=== PATIENT | male | born 1995 | race African-American/Black ===

== ENCOUNTER 2019-06-12 14:52 | Emergency (ER) | payer OTHER ==
[~2019-06-12] VITALS: Ht 177.8 cm; Wt 65.9 kg
[2019-06-12 15:00] VITALS: BP 129/75
[2019-06-12] MEDS ORDERED: GUAI237L83 PO (15:12)
--- NOTE | 2019-06-12 15:13 | PHYS DOC ---
Adult General Chief Complaint Chief Complaint: FLU SYMPTOM HPI HPI Patient is a 23-year-old male who presents with complaint that his bronchitis is returned. Patient states he has a history of bronchitis sinus regular basis and states that when he was in [place], his provider would give him some cough syrup and 2-3 days off of work and then he would be back to normal again patient indicates that he never gets antibiotics. Patient denies any fever. He denies any chest pain or shortness of breath.[] Review of Systems Review of Systems Constitutional: Denies fever or chills [] HENT: Positive congestion without sore throat [] Respiratory: Positive cough without shortness of breath [] Cardiovascular: No additional information not addressed in HPI [] Integument: Denies rash or skin lesions [] Neurologic: Denies headache, focal weakness or sensory changes [] Physical Exam Physical Exam Constitutional: Well developed, well nourished, no acute distress, non-toxic appearance. [] HENT: Normocephalic, atraumatic, bilateral external ears normal, oropharynx moist, no oral exudates, nose normal. [] Cardiovascular:Heart rate regular rhythm, no murmur [] Lungs & Thorax: Bilateral breath sounds clear to auscultation [] Extremities: No tenderness, no cyanosis, no clubbing, ROM intact, no edema. [] EKG EKG [] Radiology/Procedures Radiology/Procedures [] Course & Med Decision Making Course & Med Decision Making Pertinent Labs and Imaging studies reviewed. (See chart for details) Patient is demonstrating malingering type behavior, suggesting that he needs at least 2-3 days of work off for mild illness. Physical findings are 100% unremarkable. We will give patient excuse from physical training for 3 days. Patient should follow up with on post physician should he have any further concerns. Dragon Disclaimer Dragon Disclaimer This electronic medical record was generated, in whole or in part, using a voice recognition dictation system. Departure Departure: Impression: Primary Impression: Upper respiratory infection, viral Disposition: 01 HOME, SELF-CARE Condition: STABLE Referrals: PCP,NO (PCP) Patient Instructions: Upper Respiratory Infection, Adult Scripts Guaifenesin/Dextromethorphan (Robitussin Cough-Chest Dm Liq) 237 Ml Liquid 5 ML PO Q6HRS PRN for COUGH, #237 ML Prov: ALBARO DOWNING Jr. DO 06/12/19 ALBARO DOWNING Jr. DO Jun 12, 2019 15:13
== END 2019-06-12 15:18 | disposition home or self-care (01) ==
LOC: ER 14:52
DX: J06.9 Acute upper respiratory infection, unspecified (principal); B97.89 Other viral agents as the cause of diseases classified elsewhere
CPT/HCPCS: 99283

== ENCOUNTER 2019-09-12 18:52 | Emergency (ER) | payer OTHER ==
[~2019-09-12] VITALS: Ht 172.7 cm; Wt 63.6 kg
[~2019-09-12 18:52] MED LIST: GUAI237L83 PO
--- NOTE | 2019-09-12 19:27 | RAD ---
EXAM: Chest, single view. HISTORY: Shortness of breath. Nausea and vomiting. COMPARISON: None. FINDINGS: A frontal view of the chest is obtained. There is no infiltrate, pleural effusion or pneumothorax. The heart is normal in size. IMPRESSION: No acute pulmonary finding. Electronically signed by: Anny Simon MD (09/12/2019 7:24 PM) [facility]
[2019-09-12] MEDS ORDERED: ONDANSETRON PF 4 MG/2 ML VIAL. IVP ONE (19:30)
[2019-09-12 20:04] LABS: BASO % 1 % (0-3); EOS % 0 % (0-3); HEMATOCRIT 42.5 % (39.0-53.0); HEMOGLOBIN 14.2 g/dL (13.0-17.5); LYMPH # 1.8 x10^3/uL (1.0-4.8); LYMPH % 22 % (24-48); MEAN CORPUSCULAR HEMOGLOBIN 33 pg (25-35); MEAN CORPUSCULAR HGB CONC 33 g/dL (31-37); MEAN CORPUSCULAR VOLUME 97 fL (79-100); MONO # 0.9 x10^3/uL (0.0-1.1); MONO % 11 % (0-9); NEUT # 5.5 x10^3uL (1.8-7.7); NEUT % 67 % (31-73); PLATELET COUNT 228 x10^3/uL (140-400); RED BLOOD COUNT 4.36 x10^6/uL (4.30-5.70); WHITE BLOOD COUNT 8.2 x10^3/uL (4.0-11.0)
[2019-09-12 20:06] VITALS: BP 124/85
[2019-09-12] MEDS ORDERED: ONDA4TAB12 PO (20:12)
--- NOTE | 2019-09-12 20:13 | PHYS DOC ---
Past History Past Medical History: Bronchitis Past Surgical History: No Surgical History Alcohol Use: None General Adult EDM: Chief Complaint: SHORTNESS OF BREATH HPI: HPI: 24-year-old male presents with vomiting and general lethargy. He is also reported some mild shortness of breath. He has been feeling generally under the weather for last couple of days. The patient has been around his significant other who just found out that she was exposed to a confirmed COVID-19 patient 2 weeks ago. Neither the patient nor his significant other have been tested. Patient came here to make sure he did have a serious condition. He is worried by COVID-19. He is in the and does not want to spread to other people. He denies fever chills. No fever on arrival. Review of Systems: Review of Systems: Constitutional: Denies fever or chills Eyes: Denies change in visual acuity HENT: Denies nasal congestion or sore throat Respiratory: Cough with mild shortness of breath Cardiovascular: Denies chest pain or edema GI: Denies abdominal pain, nausea, vomiting, bloody stools or diarrhea : Denies dysuria Musculoskeletal: Denies back pain or joint pain Integument: Denies rash Neurologic: Denies headache, focal weakness or sensory changes Endocrine: Denies polyuria or polydipsia Lymphatic: Denies swollen glands Psychiatric: Denies depression or anxiety Heart Score: Risk Factors: Risk Factors: DM, Current or recent (<one month) smoker, HTN, HLP, family history of CAD, obesity. Risk Scores: Score 0 - 3: 2.5% MACE over next 6 weeks - Discharge Home Score 4 - 6: 20.3% MACE over next 6 weeks - Admit for Clinical Observation Score 7 - 10: 72.7% MACE over next 6 weeks - Early Invasive Strategies Current Medications: Current Meds: Current Medications Medications (Trade) Dose Ordered Sig/[facility] Start Time Stop Time Status Last Admin Dose Admin Ondansetron HCl (Zofran) 4 mg 1X ONCE 09/12/19 19:30 09/12/19 19:40 DC Allergies: Allergies: Allergies Coded Allergies Type Severity Reaction Last Updated Verified acetaminophen Allergy Unknown 06/12/19 Yes ibuprofen Allergy Unknown 06/12/19 Yes Physical Exam: PE: Constitutional: Well developed, well nourished, no acute distress, non-toxic appearance. [] HENT: Normocephalic, atraumatic, bilateral external ears normal, oropharynx [address], no oral exudates, nose normal. [] Eyes: PERRLA, EOMI, conjunctiva normal, no discharge. [] Neck: Normal range of motion, no tenderness, supple, no stridor. [] Cardiovascular: Deferred due to isolation precautions [] Lungs & Thorax: Deferred due to isolation precautions [] Abdomen: Bowel sounds normal, soft, no tenderness, no masses, no pulsatile masses. [] Skin: Warm, dry, no erythema, no rash. [] Back: No tenderness, no CVA tenderness. [] Extremities: No tenderness, no cyanosis, no clubbing, ROM intact, no edema. [] Neurologic: Alert and oriented X 3, normal motor function, normal sensory function, no focal deficits noted. [] Psychologic: Affect normal, judgement normal, mood normal. [] Current Patient Data: Labs: Laboratory Tests Test 09/12/19 19:30 White Blood Count 8.2 x10^3/uL (4.0-11.0) Red Blood Count 4.36 x10^6/uL (4.30-5.70) Hemoglobin 14.2 g/dL (13.0-17.5) Hematocrit 42.5 % (39.0-53.0) Mean Corpuscular Volume 97 fL (79-100) Mean Corpuscular Hemoglobin 33 pg (25-35) Mean Corpuscular Hemoglobin Concent 33 g/dL (31-37) Red Cell Distribution Width 14.0 % (11.5-14.5) Platelet Count 228 x10^3/uL (140-400) Neutrophils (%) (Auto) 67 % (31-73) Lymphocytes (%) (Auto) 22 % (24-48) L Monocytes (%) (Auto) 11 % (0-9) H Eosinophils (%) (Auto) 0 % (0-3) Basophils (%) (Auto) 1 % (0-3) Neutrophils # (Auto) 5.5 x10^3uL (1.8-7.7) Lymphocytes # (Auto) 1.8 x10^3/uL (1.0-4.8) Monocytes # (Auto) 0.9 x10^3/uL (0.0-1.1) Eosinophils # (Auto) 0.0 x10^3/uL (0.0-0.7) Basophils # (Auto) 0.0 x10^3/uL (0.0-0.2) Vital Signs: Vital Signs Date Time Temp Pulse Resp B/P (MAP) Pulse Ox O2 Delivery O2 Flow Rate FiO2 09/12/19 19:41 51 18 121/74 (90) 98 Room Air EKG: EKG: [] Radiology/Procedures: Radiology/Procedures: [] Impressions: EXAM: Chest, single view. HISTORY: Shortness of breath. Nausea and vomiting. COMPARISON: None. FINDINGS: A frontal view of the chest is obtained. There is no infiltrate, pleural effusion or pneumothorax. The heart is normal in size. IMPRESSION: No acute pulmonary finding. Electronically signed by: Anny Simon MD (09/12/2019 7:24 PM) [facility] DICTATED AND SIGNED BY: ANNY SIMON MD DATE: 09/12/191923 CC: PATTI RÍOS DO; PCP,NO ~ Course & Med Decision Making: Course & Med Decision Making Pertinent Labs and Imaging studies reviewed. (See chart for details) [] Dragon Disclaimer: Dragon Disclaimer: This electronic medical record was generated, in whole or in part, using a voice recognition dictation system. Departure Departure: Impression: Primary Impression: Close exposure to COVID-19 virus Disposition: HOME/RESIDENCE PRIOR TO ADM Condition: STABLE Referrals: PCP,NO (PCP) Patient Instructions: Viral Syndrome Scripts Ondansetron (ONDANSETRON ODT) 4 Mg Tab.rapdis 1 TAB PO PRN Q6-8HRS PRN for VOMITING, #16 TAB Prov: PATTI RÍOS DO 09/12/19 Justification of Admission: Justification of Admission: Justification of Admission Dx: N/A PATTI RÍOS DO Sep 12, 2019 20:13
[2019-09-12 20:14] LABS: CALCIUM 8.9 mg/dL (8.5-10.1); GFR 111.1; POTASSIUM 3.5 mmol/L (3.5-5.1)
[2019-09-12 20:20] LABS: ALBUMIN 4.3 g/dL (3.4-5.0); ALBUMIN/GLOBULIN RATIO 1.4 (1.0-1.7); TOTAL BILIRUBIN 1.6 mg/dL (0.2-1.0); TOTAL PROTEIN 7.3 g/dL (6.4-8.2)
== END 2019-09-12 20:30 | disposition home or self-care (01) ==
LOC: ER 18:52
DX: R06.02 Shortness of breath (principal); Z20.828 Contact with and (suspected) exposure to other viral communicable diseases; Z88.6 Allergy status to analgesic agent
CPT/HCPCS: 36415; 71045; 80053; 85025; 96374; 99284; J2405

== ENCOUNTER 2019-11-25 07:50 | Emergency (ER) | payer OTHER ==
[~2019-11-25] VITALS: Ht 177.8 cm; Wt 67.0 kg
[~2019-11-25 07:50] MED LIST changes: +ONDA4TAB12 PO
[2019-11-25 08:00] VITALS: BP 124/85
--- NOTE | 2019-11-25 08:08 | PHYS DOC ---
Past History Past Medical History: Asthma, Bronchitis Past Surgical History: No Surgical History Alcohol Use: None Adult General Chief Complaint Chief Complaint: COUGH HPI HPI Patient is a 24yo M who presents for URI-like symptoms. Onset was 2 weeks ago. Reports seeing on-post PCP as he is [employer] for this since onset and has had x3 negative COVID tests and diagnosed with viral allergies. Reports receiving RXs Zithromax, Sudafed, Affrin and Flonase without relief. Patient reports taking family members cough syrup with codeine last night that alleviated all symptoms and requesting this today. Denies any fever, chills, CP, SHOB, AP, recent travel or COVID-19 contacts. Review of Systems Review of Systems Fourteen body systems of review of systems have been reviewed. See HPI for pertinent positives and negative responses, other lovett all other systems are negative, non-pertinent or non-contributory Allergies Allergies Allergies Coded Allergies Type Severity Reaction Last Updated Verified acetaminophen Allergy Unknown 06/12/19 Yes ibuprofen Allergy Unknown 06/12/19 Yes Physical Exam Physical Exam Constitutional: Well developed, well nourished, no acute distress, non-toxic appearance. HENT: Normocephalic, atraumatic, bilateral external ears normal, middle ears normal, unremarkable tympanic membranes bilaterally without any signs of acute infection, oropharynx moist, no oral exudates, nasal turbinates mildly engorged with minimal rhinorrhea, external nose normal. No cervical lymphadenopathy, no sinus tenderness to palpation Eyes: PERRLA, EOMI, conjunctiva normal, no discharge. Neck: Normal range of motion, no tenderness, supple, no stridor. Cardiovascular: Heart rate regular, sinus rhythm, no murmurs rubs or gallops Lungs & Thorax: Bilateral breath sounds clear to auscultation Abdomen: Bowel sounds normal, soft, no tenderness, no masses, no pulsatile masses. Nonsurgical abdomen, no peritoneal signs Skin: Warm, dry, no erythema, no rash. Back: No tenderness, no CVA tenderness. Extremities: No tenderness, no cyanosis, no clubbing, ROM intact, no edema. Neurologic: Alert and oriented X 3, grossly normal motor & sensory function, no focal deficits noted. Psychologic: Affect normal, judgement normal, mood normal. EKG EKG [] Radiology/Procedures Radiology/Procedures [] Course & Med Decision Making Course & Med Decision Making Patient seen and evaluated on immediate ER arrival ABCs unremarkable Comprehensive history and physical exam obtained, discussed with patient grossly benign findings, that he has received appropriate medical therapy to date and little further work-up/intervention indicated today I declined patient's request to fill cough syrup I advised patient on need for continued supportive care with specific use of Flonase and antihistamine such as Zyrtec or Claritin Strict return precautions were discussed with patient. Patient was unhappy but understood diagnosis. All questions and concerns addressed Patient discharged home in stable condition with instructions to follow-up with PCP this upcoming week Dragon Disclaimer Dragon Disclaimer This electronic medical record was generated, in whole or in part, using a voice recognition dictation system. Departure Departure: Impression: Primary Impression: Viral syndrome Disposition: 01 HOME/RESIDENCE PRIOR TO ADM Condition: STABLE Referrals: PCP,NO (PCP) Patient Instructions: Viral Syndrome Justification of Admission: Justification of Admission: Justification of Admission Dx: N/A CHELSEY NIEVES DO Nov 25, 2019 08:08
== END 2019-11-25 08:25 | disposition home or self-care (01) ==
LOC: ER 07:50
DX: B34.9 Viral infection, unspecified (principal); J45.909 Unspecified asthma, uncomplicated; Z88.6 Allergy status to analgesic agent
CPT/HCPCS: 99282

== ENCOUNTER 2020-03-12 23:34 | Emergency (ER) | payer OTHER ==
[~2020-03-12] VITALS: Ht 177.8 cm; Wt 63.9 kg
--- NOTE | 2020-03-13 00:03 | PHYS DOC ---
Past History Past Medical History: No Pertinent History, Asthma, Bronchitis Past Surgical History: No Surgical History Alcohol Use: None General Adult EDM: Chief Complaint: CHEST PAIN HPI: HPI: ".. I ve been having chest pain the last three days.. [place],.. it been constant.. I was notified by the [place]--- my father on the ... stress of the notification or... Work... Have not had these problems before.... 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 Patient presents with above hx and complaints of central chest pain or discomfort. Patient states he is in good physical health not had problems with cardiac before. Pt has been under stress at work and recent notification of father's on the . Patient does not smoke. Does not vape. Does not use illicit drugs. No recent travel. Recently lived in [place].. Patient has past history of asthma, bronchitis. No history of dysrhythmia. No history of family history of early onset of cardiac disease. Patient reports he is in very good physical condition. No trauma. No recent travel. No specific ill contacts. Covid testing negative this past week as part of the screen. Review of Systems: Review of Systems: Constitutional: Denies fever or chills Eyes: Denies change in visual acuity HENT: Denies nasal congestion or sore throat Respiratory: Denies cough or shortness of breath Cardiovascular: Complains of chest pain GI: Denies abdominal pain, nausea, vomiting, bloody stools or diarrhea : Denies dysuria Musculoskeletal: Denies back pain or joint pain Integument: Denies rash Neurologic: Denies headache, focal weakness or sensory changes Endocrine: Denies polyuria or polydipsia Lymphatic: Denies swollen glands Psychiatric: Denies depression or anxiety Family History: Family History: Noncontributory to presentation Current Medications: Current Meds: See nursing for home meds Allergies: Allergies: Allergies Coded Allergies Type Severity Reaction Last Updated Verified No Known Drug Allergies 03/12/20 No Physical Exam: PE: Constitutional: Well developed, well nourished, no acute distress, non-toxic appearance. [] HENT: Normocephalic, atraumatic, bilateral external ears normal, oropharynx moist, no oral exudates, nose normal. Nose ring Eyes: PERRLA, EOMI, conjunctiva normal, no discharge. [] Neck: Normal range of motion, no tenderness, supple, no stridor. [] Cardiovascular: Bradycardic heart rate regular rhythm, no murmur [] Lungs & Thorax: Bilateral breath sounds equal apex on auscultation [] Abdomen: Bowel sounds normal, soft, no tenderness, no masses, no pulsatile masses. No history of tarry stools Skin: Warm, dry, no erythema, no rash. Multiple tattoos Back: No tenderness, no CVA tenderness. [] Extremities: No tenderness, no cyanosis, no clubbing, ROM intact, no edema. No cording Neurologic: Alert and oriented X 3, normal motor function, normal sensory function, no focal deficits noted. [] Psychologic: Affect anxious,, judgement normal, mood normal. [] Current Patient Data: Vital Signs: Vital Signs Date Time Temp Pulse Resp B/P (MAP) Pulse Ox O2 Delivery O2 Flow Rate FiO2 03/12/20 23:47 98.8 53 18 133/87 (102) 99 Room Air EKG: EKG: My interpretation of EKG shows a sinus bradycardic rhythm [] at 52 bpm. No acute morphology appreciated Radiology/Procedures: Radiology/Procedures: [][address] [address] IMAGING REPORT Signed PATIENT: MATIAS CASEY ACCOUNT: [id number] : 1995 LOCATION: ER AGE: 24 SEX: M EXAM STATUS: REG ER ORD. PHYSICIAN: YOGESH VALERIO MD REASON: Chest pain PROCEDURE: PORTABLE CHEST 1V INDICATION: Reason: Chest pain / Spl. Instructions: / History: COMPARISON: September 12, 2019 FINDINGS: Single view of chest obtained. No focal airspace consolidation. Cardiomediastinal contour unremarkable. No acute osseous abnormality. IMPRESSION: * No focal airspace consolidation or edema. Electronically signed by: Zahira Bo MD (03/13/2020 12:52 AM) DESKTOP- [id number] DICTATED AND SIGNED BY: ZAHIRA BO MD DATE: 03/13/20 0051 CC: YOGESH VALERIO MD; PCP,UNKNOWN ~MTH0 0 Heart Score: HEART Score for Chest Pain: HEART Score for Chest Pain Response (Comments) Value History Slighlty/Non-Suspicious 0 ECG Normal 0 Age < 45 0 Risk Factors No Risk Factors 0 Troponin < Normal Limit 0 Total 0 Risk Factors: Risk Factors: DM, Current or recent (<one month) smoker, HTN, HLP, family history of CAD, obesity. Risk Scores: Score 0 - 3: 2.5% MACE over next 6 weeks - Discharge Home Score 4 - 6: 20.3% MACE over next 6 weeks - Admit for Clinical Observation Score 7 - 10: 72.7% MACE over next 6 weeks - Early Invasive Strategies Course & Med Decision Making: Course & Med Decision Making Pertinent Labs and Imaging studies reviewed. (See chart for details) Patient take Tylenol and ibuprofen as needed for pain. Patient to take a daily baby aspirin and follow-up with Brigitte. Consider outpatient stress testing. Return if any concerns. Impression: 1. Chest Pain- appears to be chest wall or atypical. 2. Bradycardia [] Dragon Disclaimer: Dragon Disclaimer: This electronic medical record was generated, in whole or in part, using a voice recognition dictation system. Departure Departure: Referrals: PCP,UNKNOWN (PCP) Scripts Aspirin (Children's Aspirin) 81 Mg Tab.chew 1 TAB PO DAILY for cp for 30 Days, #30 TAB 0 Refills Prov: YOGESH VALERIO MD 03/13/20 Ibuprofen (IBUPROFEN) 400 Mg Tablet 400 MG PO QIDPRN PRN for pain, fever or discomfort, #120 TAB Prov: YOGESH VALERIO MD 03/13/20 Acetaminophen (ACETAMINOPHEN) 500 Mg Tablet 1000 MG PO QIDPRN PRN for fever, discomfort, #120 TAB Prov: YOGESH VALERIO MD 03/13/20 Dragon Disclaimer This chart was dictated in whole or in part using Voice Recognition software in a busy, high-work load, and often noisy Emergency Department environment. It may contain unintended and wholly unrecognized errors or omissions. Dragon Disclaimer This chart was dictated in whole or in part using Voice Recognition software in a busy, high-work load, and often noisy Emergency Department environment. It may contain unintended and wholly unrecognized errors or omissions. Dragon Disclaimer This chart was dictated in whole or in part using Voice Recognition software in a busy, high-work load, and often noisy Emergency Department environment. It may contain unintended and wholly unrecognized errors or omissions. YOGESH VALERIO MD Mar 13, 2020 00:03
[2020-03-13 00:16] LABS: BASO # 0.1 x10^3/uL (0.0-0.2); BASO % 1 % (0-3); EOS # 0.1 x10^3/uL (0.0-0.7); EOS % 2 % (0-3); HEMATOCRIT 44.7 % (39.0-53.0); HEMOGLOBIN 14.7 g/dL (13.0-17.5); LYMPH # 2.3 x10^3/uL (1.0-4.8); LYMPH % 34 % (24-48); MEAN CORPUSCULAR HEMOGLOBIN 32 pg (25-35); MEAN CORPUSCULAR HGB CONC 33 g/dL (31-37); MEAN CORPUSCULAR VOLUME 98 fL (79-100); MONO # 0.9 x10^3/uL (0.0-1.1); MONO % 13 % (0-9); NEUT # 3.6 x10^3uL (1.8-7.7); NEUT % 51 % (31-73); PLATELET COUNT 230 x10^3/uL (140-400); RED BLOOD COUNT 4.56 x10^6/uL (4.30-5.70); RED CELL DISTRIBUTION WIDTH 13.8 % (11.5-14.5); WHITE BLOOD COUNT 6.9 x10^3/uL (4.0-11.0)
[2020-03-13 00:21] LABS: CALCIUM 9.2 mg/dL (8.5-10.1); CREATININE 1.2 mg/dL (0.7-1.3); POTASSIUM 3.7 mmol/L (3.5-5.1)
[2020-03-13] MEDS ORDERED: IV RINGERS SOLUTION,LACTATED 1,000 ML IV SCH (00:30)
[2020-03-13] MEDS ORDERED: ASPIRIN CHEWABLE 81 MG TABLET. PO ONE (00:30)
[2020-03-13 00:33] LABS: ALBUMIN 4.3 g/dL (3.4-5.0); DIRECT BILIRUBIN 0.3 mg/dL (0.0-0.2); TOTAL BILIRUBIN 1.4 mg/dL (0.2-1.0); TOTAL PROTEIN 7.2 g/dL (6.4-8.2)
--- NOTE | 2020-03-13 00:55 | RAD ---
INDICATION: Reason: Chest pain / Spl. Instructions: / History: COMPARISON: September 12, 2019 FINDINGS: Single view of chest obtained. No focal airspace consolidation. Cardiomediastinal contour unremarkable. No acute osseous abnormality. IMPRESSION: * No focal airspace consolidation or edema. Electronically signed by: Venkat Bo MD (03/13/2020 12:52 AM) [id number]
[2020-03-13] MEDS ORDERED: IBUP400T18 PO (01:36)
[2020-03-13] MEDS ORDERED: ACET500T68 PO (01:36)
[2020-03-13] MEDS ORDERED: ASPI81TA59 PO (01:36)
[2020-03-13 01:42] VITALS: BP 131/80
[2020-03-13] MEDS ORDERED: KETOROLAC 30 MG/ML VIAL. IVP ONE (02:00)
--- NOTE | 2020-03-13 06:33 | EKG ---
[address] [address] Test Date: 2020-03-12 Test Time: 23:50:22 Pat Name: MATIAS CASEY Department: Room: Gender: M Online [employer] Specialist: JAMAL : 1995 Requested By: YOGESH VALERIO Order Number: [id number] Reading MD: Measurements Intervals [place] Rate: 52 P: 70 MI: 160 QRS: 68 QRSD: 100 T: 62 QT: 404 QTc: 378 Interpretive Statements SINUS ARRHYTHMIA OTHERWISE NORMAL ECG RI6.02 No previous ECG available for comparison
[2020-03-13 15:08] LABS: THYROID STIM HORMONE (TSH) 2.564 uIU/mL (0.358-3.740)
== END 2020-03-13 02:00 | disposition home or self-care (01) ==
LOC: ER 23:34
DX: R07.89 Other chest pain (principal); R00.1 Bradycardia, unspecified; F43.9 Reaction to severe stress, unspecified; J45.909 Unspecified asthma, uncomplicated
CPT/HCPCS: 36415; 71045; 80048; 80061; 80076; 82550; 83690; 83735; 83880; 84443; 84484; 85025; 85379; 85610; 85730; 93005; 96361; 96374; 99285; J1885; J7120

== ENCOUNTER 2020-05-03 03:29 | Emergency (ER) | payer OTHER ==
[~2020-05-03] VITALS: Ht 177.8 cm; Wt 63.9 kg
[~2020-05-03 03:29] MED LIST changes: +ACET500T68 PO; +ASPI81TA59 PO; +IBUP400T18 PO
[2020-05-03 03:42] VITALS: BP 99/70
[2020-05-03] MEDS ORDERED: ONDA4TAB7 PO (04:03)
[2020-05-03] MEDS ORDERED: DIPH25CA58 PO (04:03)
--- NOTE | 2020-05-03 04:08 | PHYS DOC ---
Past History Past Medical History: Asthma, Bronchitis, GERD Past Surgical History: No Surgical History Alcohol Use: None Adult General Chief Complaint Chief Complaint: HEADACHE HPI HPI Patient is an otherwise healthy 24-year-old male who presents with headache. States he has a mild, 3 out of 10, whole head headache, that has been going on since he got off work yesterday morning. 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 States that when he got home he ended up mild headache. Denies any changes in vision, fevers, neck pain, chest pain, shortness of breath, abdominal pain, nausea, vomiting. Denies any numbness/weakness/tingling. States he has been eating normally but probably has not been drinking enough water. States he is unable to take any Tylenol or ibuprofen as they make his stomach upset so has not taken anything. Denies any other recent travel, illnesses, rash. States he was supposed to go into work tonight but did not go and wants a work note. Review of Systems Review of Systems Review of systems otherwise unremarkable except noted in HPI. Allergies Allergies Allergies Coded Allergies Type Severity Reaction Last Updated Verified No Known Drug Allergies 03/12/20 No Physical Exam Physical Exam Constitutional: Well developed, well nourished, no acute distress, non-toxic appearance. [] HENT: Normocephalic, atraumatic, bilateral external ears normal, oropharynx moist, no oral exudates, nose normal. [] Eyes: PERRLA, EOMI, conjunctiva normal, no discharge. [] Neck: Normal range of motion, ] Cardiovascular:Heart rate regular rhythm, no murmur [] Lungs & Thorax: Bilateral breath sounds clear to auscultation [] Abdomen: no tenderness, Skin: Warm, dry, no erythema, no rash. [] Neurologic: Alert and oriented X 3, normal motor function, normal sensory function, no focal deficits noted. [] Psychologic: Affect normal, judgement normal, mood normal. [] Current Patient Data Vital Signs Vital Signs Date Time Temp Pulse Resp B/P (MAP) Pulse Ox O2 Delivery O2 Flow Rate FiO2 05/03/20 03:42 97.8 50 18 99/70 (80) 99 Room Air EKG EKG [] Radiology/Procedures Radiology/Procedures [] Heart Score Risk Factors: Risk Factors: DM, Current or recent (<one month) smoker, HTN, HLP, family history of CAD, obesity. Risk Scores: Risk Factors: DM, Current or recent (<one month) smoker, HTN, HLP, family hi story of CAD, obesity. Course & Med Decision Making Course & Med Decision Making Patient is a 24-year-old male who presents with mild headache and requesting a work note Vital signs not concerning. Physical exam noted above. Discussed with patient other treatment regimens at home for headache. Gave patient the option to stay in the emergency department, and run basic labs and give a modified migraine cocktail which would make him sleepy. Patient stated he just wanted a work note because he was supposed to work tonight and some advice on what to take when he gets home. States that his headache is already getting better than it was but needed a work note. Gave instructions and prescriptions on home headache medicine. Advised proper diet and hydration. Advised to follow-up with primary care physician to discuss ED visit and set up a post ER follow-up visit. Patient very grateful, verbalized understanding and agreed with plan of discharge. [] Dragon Disclaimer Dragon Disclaimer This electronic medical record was generated, in whole or in part, using a voice recognition dictation system. Departure Departure: Impression: Primary Impression: Head ache Disposition: 01 DC HOME SELF CARE/HOMELESS Condition: GOOD Referrals: PCP,UNKNOWN (PCP) Patient Instructions: General Headache Without Cause Additional Instructions: Please read all the attached information. As discussed you were given a work note for tonight and advised to make sure to eat and drink properly. Please use the headache medicine/cocktail that we discussed and try to get some sleep. Please follow-up with your primary care physician/Brigitte first thing Tuesday morning to discuss your ED visit and need for any further evaluation. Please come back to the emergency department if you have any new or concerning symptoms. Scripts Ondansetron Hcl (ZOFRAN) 4 Mg Tablet 1 TAB PO TID PRN PRN for NAUSEA for 7 Days, #21 TAB Prov: TODD REYNOSO MD 05/03/20 Diphenhydramine Hcl (BENADRYL) 25 Mg Capsule 2 CAP PO BIDAFTMEAL PRN for headache for 15 Days, #30 CAP 0 Refills Prov: TODD REYNOSO MD 05/03/20 TODD REYNOSO MD May 03, 2020 04:08
== END 2020-05-03 04:10 | disposition home or self-care (01) ==
LOC: ER 03:29
DX: R51.9 Headache, unspecified (principal); J45.909 Unspecified asthma, uncomplicated; K21.9 Gastro-esophageal reflux disease without esophagitis
CPT/HCPCS: 99283

== ENCOUNTER 2020-05-07 03:05 | Emergency (ER) | payer OTHER ==
[~2020-05-07] VITALS: Ht 177.8 cm; Wt 63.9 kg
[~2020-05-07 03:05] MED LIST changes: +DIPH25CA58 PO; +ONDA4TAB7 PO
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
[2020-05-07] MEDS ORDERED: KETOROLAC 60 MG/2 ML VIAL. IM ONE (03:30)
[2020-05-07] MEDS ORDERED: oxyCODONE/APAP 5/325 1 TAB TABLET PO ONE (03:30)
[2020-05-07] MEDS ORDERED: ORPHENADRINE CITRATE 60 MG/2 ML VIAL. IM ONE (03:30)
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
[2020-05-07] MEDS ORDERED: HYDR-1179 PO (04:23)
[2020-05-07] MEDS ORDERED: CYCL-331 PO (04:23)
[2020-05-07] MEDS ORDERED: IBUP100O25 PO (04:23)
[2020-05-07] MEDS ORDERED: ACET500T68 PO (04:23)
[2020-05-07 04:29] VITALS: BP 136/71
== END 2020-05-07 04:30 | disposition home or self-care (01) ==
LOC: ER 03:05
DX: S33.5XXA Sprain of ligaments of lumbar spine, initial encounter (principal); J45.909 Unspecified asthma, uncomplicated; K21.9 Gastro-esophageal reflux disease without esophagitis; G43.909 Migraine, unspecified, not intractable, without status migrainosus; V43.52XA Car driver injured in collision with other type car in traffic accident, initial encounter; Y93.I9 Activity, other involving external motion; Y92.89 Other specified places as the place of occurrence of the external cause; Y99.8 Other external cause status
CPT/HCPCS: 70450; 72125; 72131; 96372; 99285; J1885; J2360

== ENCOUNTER 2020-05-12 11:35 | Emergency (ER) | payer OTHER ==
[~2020-05-12] VITALS: Ht 177.8 cm; Wt 63.9 kg
[~2020-05-12 11:35] MED LIST changes: +CYCL-331 PO; +HYDR-1179 PO; +IBUP100O25 PO
[2020-05-12 12:19] VITALS: BP 124/86
--- NOTE | 2020-05-12 13:48 | PHYS DOC ---
Past History Past Medical History: Asthma, Bronchitis, GERD, Migraines Past Surgical History: No Surgical History Alcohol Use: None General Adult EDM: Chief Complaint: BACK PAIN OR INJURY HPI: HPI: Patient is a [age] year old [sex] who presents with [] Allergies: Allergies: Allergies Coded Allergies Type Severity Reaction Last Updated Verified No Known Drug Allergies 03/12/20 No Current Patient Data: Vital Signs: Vital Signs Date Time Temp Pulse Resp B/P (MAP) Pulse Ox O2 Delivery O2 Flow Rate FiO2 05/12/20 12:19 97.9 63 16 124/86 (99) 96 Room Air EKG: EKG: [] Radiology/Procedures: Radiology/Procedures: [] Heart Score: Risk Factors: Risk Factors: DM, Current or recent (<one month) smoker, HTN, HLP, family history of CAD, obesity. Risk Scores: Score 0 - 3: 2.5% MACE over next 6 weeks - Discharge Home Score 4 - 6: 20.3% MACE over next 6 weeks - Admit for Clinical Observation Score 7 - 10: 72.7% MACE over next 6 weeks - Early Invasive Strategies Course & Med Decision Making: Course & Med Decision Making Pertinent Labs and Imaging studies reviewed. (See chart for details) DUE TO PROLONGED EMR DOWNTIME/HOSPITAL POLICY, PTS' FULL CHART (INCLUDING, HISTORY, ROS, PHYSICAL EXAM, IMPRESSION, IMAGING/LABS/ORDERS, DISPOSITION AND DISCHARGE PAPERS) -WAS DOCUMENTED VIA PAPER CHARTING. - PLEASE REFER TO PAPER DOCUMENTS FOR FULL INFORMATION REGARDING PTS' ED VISIT. Dragon Disclaimer: Dragon Disclaimer: This electronic medical record was generated, in whole or in part, using a voice recognition dictation system. Departure Departure: Impression: Primary Impression: Back pain Disposition: 01 DC HOME SELF CARE/HOMELESS Condition: STABLE Referrals: HECTOR LYLE DO (PCP) CIRA MATOS DO May 12, 2020 13:48
== END 2020-05-12 12:30 | disposition home or self-care (01) ==
LOC: ER 11:35
DX: M54.5 Low back pain (principal); G43.909 Migraine, unspecified, not intractable, without status migrainosus; K21.9 Gastro-esophageal reflux disease without esophagitis; J45.909 Unspecified asthma, uncomplicated; V43.52XA Car driver injured in collision with other type car in traffic accident, initial encounter; Y93.89 Activity, other specified; Y92.89 Other specified places as the place of occurrence of the external cause; Y99.8 Other external cause status
CPT/HCPCS: 99281

== ENCOUNTER 2020-05-25 02:56 | Emergency (ER) | payer OTHER ==
[~2020-05-25] VITALS: Ht 177.8 cm; Wt 62.7 kg
[2020-05-25] MEDS ORDERED: percocet (03:16)
[2020-05-25] MEDS ORDERED: vicodin (03:16)
--- NOTE | 2020-05-25 03:19 | PHYS DOC ---
Past History Past Medical History: Asthma, Bronchitis, GERD, Migraines Past Surgical History: No Surgical History Alcohol Use: None General Adult EDM: Chief Complaint: HEADACHE HPI: HPI: ". I am having one my Migraine headaches..and a couple episodes of diarrhea... 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 They do not want me there if I am sick.. 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 Patient states he thinks the diarrhea is caused by bad food. Denies any specific ill contacts. Denies any trauma. Denies any recent travel or receive assignments. Patient denies any history immunosuppression. Is up-to-date with vaccinations. Does have a history of asthma, bronchitis, GERD, migraine headaches, and ASD discovered on echo and 2017. Patient states his headache is like prior migraine headaches. No fever or chills. Patient does not take any expressing migraine headaches. Patient does have some photophobia. Does have nausea but no vomiting as yet with this migraine onset. Patient does have a signed work shift this morning at the [employer]. Patient's previous CTs have been negative. Reviewed prior records for ED visits. Review of Systems: Review of Systems: Constitutional: Denies fever or chills Eyes: Denies change in visual acuity. Does complain of photophobia HENT: Denies nasal congestion or sore throat Respiratory: Denies cough or shortness of breath Cardiovascular: Denies chest pain or edema GI: Denies abdominal pain, nausea, vomiting, bloody stools. Complains of diarrhea : Denies dysuria Musculoskeletal: Denies back pain or joint pain Integument: Denies rash Neurologic: Complains headache,. Denies focal weakness or sensory changes Endocrine: Denies polyuria or polydipsia Lymphatic: Denies swollen glands Psychiatric: Denies depression or anxiety Family History: Family History: Noncontributory Current Medications: Current Meds: See nursing for home meds Allergies: Allergies: Allergies Coded Allergies Type Severity Reaction Last Updated Verified No Known Drug Allergies 03/12/20 No Physical Exam: PE: Constitutional: Moderate acute distress, non-toxic appearance. [] HENT: Normocephalic, atraumatic, bilateral external ears normal, oropharynx moist, no oral exudates, nose normal. [] Eyes: PERRLA, EOMI, conjunctiva normal, no discharge. Fundus benign Neck: Normal range of motion, no tenderness, supple, no stridor. [] Cardiovascular:Heart rate regular rhythm, no murmur [] Lungs & Thorax: Bilateral breath sounds equal apex with few scattered wheezes on auscultation [] Abdomen: Bowel sounds hyperactive, soft, no tenderness, no masses, no pulsatile masses. [] Skin: Warm, dry, no erythema, no rash. Tattoos Back: No tenderness, no CVA tenderness. [] Extremities: No tenderness, no cyanosis, no clubbing, ROM intact, no edema. [] Neurologic: Alert and oriented X 3, normal motor function, normal sensory function, no focal deficits noted. DTRs +2 patella and brachial. Turkey Farmer equal. No drift. Ambulatory without problems. Psychologic: Affect anxious, judgement normal, mood normal. [] Current Patient Data: Labs: Patient declined lab draws EKG: EKG: [] Radiology/Procedures: Radiology/Procedures: Patient declined repeat CT of head [] Heart Score: Risk Factors: Risk Factors: DM, Current or recent (<one month) smoker, HTN, HLP, family history of CAD, obesity. Risk Scores: Score 0 - 3: 2.5% MACE over next 6 weeks - Discharge Home Score 4 - 6: 20.3% MACE over next 6 weeks - Admit for Clinical Observation Score 7 - 10: 72.7% MACE over next 6 weeks - Early Invasive Strategies Course & Med Decision Making: Course & Med Decision Making Pertinent Labs and Imaging studies reviewed. (See chart for details) Patient requesting Toradol and nausea meds. Patient declines spinal tap risk and benefits discussed. Patient to take Imitrex 100 mg at beginning of migraine. Patient take no more than 200 mg in a 24-hour period. Patient take Tylenol and ibuprofen for pain. Patient take Zofran 8 mg up to 4 times a day for nausea and vomiting. Patient follow-up primary care. Patient return if any concerns. Patient remain on clear fluid diet for the next 24 to 48 hours to allow bowel rest. Impression: 1. Migraine headache 2. Complaints of diarrhea x2 [] Dragon Disclaimer: Dragon Disclaimer: This electronic medical record was generated, in whole or in part, using a voice recognition dictation system. Departure Departure: Referrals: HECTOR LYLE DO (PCP) Scripts Sumatriptan Succinate (IMITREX) 100 Mg Tablet 100 MG PO 1 for migraine, #10 TAB Prov: YOGESH VALERIO MD 05/25/20 Ondansetron Hcl (ZOFRAN) 4 Mg Tablet 8 MG PO QIDPRN PRN for NAUSEA/VOMITING, #30 TAB Prov: YOGESH VALERIO MD 05/25/20 Hydrocodone/Ibuprofen (HYDROCODONE-IBUPROFEN 7.5-200 ) 1 Each Tablet 1 TAB PO PRN Q6HRS PRN for PAIN, #30 TAB 0 Refills Prov: YOGESH VALERIO MD 05/25/20 Dragon Disclaimer This chart was dictated in whole or in part using Voice Recognition software in a busy, high-work load, and often noisy Emergency Department environment. It may contain unintended and wholly unrecognized errors or omissions. YOGESH VALERIO MD May 25, 2020 03:19
[2020-05-25] MEDS ORDERED: KETOROLAC 60 MG/2 ML VIAL. IM ONE ×3 (03:20→03:45)
[2020-05-25] MEDS ORDERED: SUMAtriptan SUCC 6 MG/0.5 ML VIAL SQ ONE ×2 (03:20→03:45)
[2020-05-25] MEDS ORDERED: ONDANSETRON ODT 4 MG TAB.RAPDIS ONE (03:20)
[2020-05-25] MEDS ORDERED: SUMA100T3 PO (03:26)
[2020-05-25] MEDS ORDERED: HYDR-1179 PO (03:26)
[2020-05-25] MEDS ORDERED: ONDA4TAB7 PO (03:26)
[2020-05-25 03:45] VITALS: BP 118/64
[2020-05-25] MEDS ORDERED: ONDANSETRON ODT 4 MG TAB.RAPDIS PO ONE (03:45)
== END 2020-05-25 03:45 | disposition home or self-care (01) ==
LOC: ER 02:56
DX: G43.909 Migraine, unspecified, not intractable, without status migrainosus (principal); R19.7 Diarrhea, unspecified; J45.909 Unspecified asthma, uncomplicated; K21.9 Gastro-esophageal reflux disease without esophagitis
CPT/HCPCS: 96372; 99284; J1885; J3030; Q0162

== ENCOUNTER 2020-08-21 07:55 | Emergency (ER) | payer OTHER ==
[~2020-08-21] VITALS: Ht 177.8 cm; Wt 58.0 kg
[~2020-08-21 07:55] MED LIST changes: +SUMA100T3 PO; +percocet; +vicodin
[2020-08-21 08:08] VITALS: BP 109/69
--- NOTE | 2020-08-21 08:23 | RAD ---
Site ID: [id number] EXAMINATION: XR EXAM OF ANKLE_RIGHT 3VIEWS. HISTORY: 25 years Male Reason: twisted, pain injury COMPARISON: None. FINDINGS: No fracture, dislocation or radiopaque foreign body. The joint spaces and articular surfaces appea r unremarkable. IMPRESSION: Unremarkable exam. Electronically signed by: Vaughn Ramirez MD (08/21/2020 8:21 AM) [id number]
--- NOTE | 2020-08-21 08:33 | PHYS DOC ---
Past History Past Medical History: No Pertinent History Additional Past Medical Histor: ASD Past Surgical History: No Surgical History Alcohol Use: None General Adult EDM: Chief Complaint: ANKLE PROBLEM HPI: HPI: 25-year-old male presents with right ankle pain. The patient was at work today and he twisted his ankle. His foot inverted medially. He has lateral ankle pain. He is able to walk but it is uncomfortable. He was told to come here by the for evaluation. He denies numbness, tingling, or altered sensation. He has no other injuries at this time. Review of Systems: Review of Systems: Constitutional: Denies fever or chills Eyes: Denies change in visual acuity HENT: Denies nasal congestion or sore throat Respiratory: Denies cough or shortness of breath Cardiovascular: Denies chest pain or edema GI: Denies abdominal pain, nausea, vomiting, bloody stools or diarrhea : Denies dysuria Musculoskeletal: Right ankle pain Integument: Denies rash Neurologic: Denies headache, focal weakness or sensory changes Endocrine: Denies polyuria or polydipsia Lymphatic: Denies swollen glands Psychiatric: Denies depression or anxiety Allergies: Allergies: Allergies Coded Allergies Type Severity Reaction Last Updated Verified No Known Drug Allergies 05/25/20 No Physical Exam: PE: Constitutional: Well developed, well nourished, no acute distress, non-toxic appearance. [] HENT: Normocephalic, atraumatic, bilateral external ears normal, oropharynx moist, no oral exudates, nose normal. [] Eyes: PERRLA, EOMI, conjunctiva normal, no discharge. [] Neck: Normal range of motion, no tenderness, supple, no stridor. [] Cardiovascular:Heart rate regular rhythm, no murmur [] Lungs & Thorax: Bilateral breath sounds clear to auscultation [] Abdomen: Bowel sounds normal, soft, no tenderness, no masses, no pulsatile masses. [] Skin: Warm, dry, no erythema, no rash. [] Back: No tenderness, no CVA tenderness. [] Extremities: Tenderness of the right lateral ankle especially over the ATFL, minimal swelling, no obvious deformity [] Neurologic: Alert and oriented X 3, normal motor function, normal sensory function, no focal deficits noted. [] Psychologic: Affect normal, judgement normal, mood normal. [] Current Patient Data: Vital Signs: Vital Signs Date Time Temp Pulse Resp B/P (MAP) Pulse Ox O2 Delivery O2 Flow Rate FiO2 08/21/20 08:08 97.9 98 18 109/69 (82) 98 Room Air EKG: EKG: [] Radiology/Procedures: Radiology/Procedures: [] Impressions: Site ID: [id number] EXAMINATION: XR EXAM OF ANKLE_RIGHT 3VIEWS. HISTORY: 25 years Male Reason: twisted, pain injury COMPARISON: None. FINDINGS: No fracture, dislocation or radiopaque foreign body. The joint spaces and articular surfaces appear unremarkable. IMPRESSION: Unremarkable exam. Electronically signed by: Vaughn Ramirez MD (08/21/2020 8:21 AM) [id number] DICTATED AND SIGNED BY: VAUGHN RAMIREZ MD DATE: 08/21/20819 CC: PATTI RÍOS DO; NON,STAFF ~MTH0 0 Heart Score: C/O Chest Pain: N/A Risk Factors: Risk Factors: DM, Current or recent (<one month) smoker, HTN, HLP, family history of CAD, obesity. Risk Scores: Score 0 - 3: 2.5% MACE over next 6 weeks - Discharge Home Score 4 - 6: 20.3% MACE over next 6 weeks - Admit for Clinical Observation Score 7 - 10: 72.7% MACE over next 6 weeks - Early Invasive Strategies Course & Med Decision Making: Course & Med Decision Making Pertinent Labs and Imaging studies reviewed. (See chart for details) The patient's x-ray is negative for fracture. He appears to sprained his ATFL. We will place him in a stirrup splint and provided crutches. He will follow-up with his medical providers. He is stable for discharge at this time. [] Dragon Disclaimer: Dragon Disclaimer: This electronic medical record was generated, in whole or in part, using a voice recognition dictation system. Departure Departure: Impression: Primary Impression: Right ankle sprain Qualified Codes: S93.491A - Sprain of other ligament of right ankle, initial encounter Disposition: HOME / SELF CARE / HOMELESS Condition: STABLE Referrals: NON,STAFF (PCP) Patient Instructions: Ankle Sprain, Acute, with Phase I [facility] PATTI RÍOS DO August 21, 2020 08:33
== END 2020-08-21 08:39 | disposition home or self-care (01) ==
LOC: ER 07:55
DX: S93.401A Sprain of unspecified ligament of right ankle, initial encounter (principal); X50.1XXA Overexertion from prolonged static or awkward postures, initial encounter; Y93.89 Activity, other specified; Y92.89 Other specified places as the place of occurrence of the external cause; Y99.8 Other external cause status
CPT/HCPCS: 29515; 73610; 99283-25

== ENCOUNTER 2021-01-28 13:39 | Emergency (ER) | payer OTHER ==
[~2021-01-28] VITALS: Ht 177.8 cm; Wt 74.9 kg
[~2021-01-28 13:39] MED LIST changes: -CYCL-331 PO; +CYCL10TA19 PO; +IBUP-1742 PO; -IBUP100O25 PO
[2021-01-28 13:50] VITALS: BP 113/64
--- NOTE | 2021-01-28 14:18 | PHYS DOC ---
Past History Past Medical History: No Pertinent History Additional Past Medical Histor: ASD (GURU REDMOND) Past Surgical History: No Surgical History (GURU REDMOND) Alcohol Use: None (GURU REDMOND) General Adult EDM: Chief Complaint: FEVER HPI: HPI: Patient is a 25 year old male who presents with 5-day history of shortness of breath, productive cough, subjective fever and congestion. [place] At that time, he had a negative Covid swab that resulted within a couple of hours. He was prescribed promethazine, codeine syrup, Benadryl, ibuprofen and Mucinex. He was seen again on Tuesday, where he had another negative Covid swab test. He was instructed to quarantine for 10 days. He is now out of his prescribed medications, but [place]. Patient requests refill of prescribed medications. (GURU REDMOND) Review of Systems: Review of Systems: 12 systems reviewed. ROS negative except as mentioned in HPI. (GURU REDMOND) Allergies: Allergies: Allergies Coded Allergies Type Severity Reaction Last Updated Verified No Known Drug Allergies 01/28/21 No (GURU REDMOND) Physical Exam: PE: Constitutional: Well developed, well nourished, no acute distress, non-toxic appearance. HENT: Normocephalic, atraumatic, bilateral external ears normal, oropharynx moist, no oral exudates, bilateral nares with mucus. Eyes: PERRLA, EOMI, conjunctiva normal, no discharge. Neck: Normal range of motion, no tenderness, supple, no stridor. [] Cardiovascular: Heart rate regular rhythm, no murmur. Lungs & Thorax: Bilateral breath sounds clear to auscultation without wheezes/rales/rhonchi, cough appreciated. Abdomen: Bowel sounds normal, soft, no tenderness, no masses, no pulsatile masses. (GURU REDMOND) Current Patient Data: Labs: Laboratory Tests Test 01/28/21 14:25 Influenza Type A (Rapid) Negative (NEGATIVE) Influenza Type B (Rapid) Negative (NEGATIVE) Vital Signs: Vital Signs Date Time Temp Pulse Resp B/P (MAP) Pulse Ox O2 Delivery O2 Flow Rate FiO2 01/28/21 13:50 98.1 65 20 113/64 (80) 98 Room Air (GURU REDMOND) Radiology/Procedures: Radiology/Procedures: PROCEDURE: PORTABLE CHEST 1V XR CHEST 1V History: Reason: sob / Spl. Instructions: / History: Comparison: March 12, 2020 Findings: No consolidation or pleural effusion. Normal heart size. No pneumothorax. Impression: 1. No acute cardiopulmonary process. Electronically signed by: Jay Becerra DO (01/28/2021 2:39 PM) [id number] (GURU REDMOND) Heart Score: C/O Chest Pain: No (GURU REDMOND) Course & Med Decision Making: Course & Med Decision Making Pertinent Labs and Imaging studies reviewed. (See chart for details) Patient reports that [place] swabs, however the likelihood of that is low due to the fact that he had results for both swabs within a few hours. PCR swab will be obtained today, as well as rapid flu swab. Patient instructed to use Mucinex, ibuprofen, Benadryl during the day. He can use cough suppressant at night in order to help him sleep. Chest x-ray ordered to rule out ambulatory community-acquired pneumonia. Chest x-ray negative for focal consolidations. Patient instructed to quarantine until Covid test results come back. He should continue medications as prescribed. Patient understands and is agreeable to discharge plan. (GURU REDMOND) Dragon Disclaimer: Dragon Disclaimer: This electronic medical record was generated, in whole or in part, using a voice recognition dictation system. (GURU REDMOND) Departure Departure: Impression: Primary Impression: Viral syndrome Disposition: 01 HOME / SELF CARE / HOMELESS Condition: STABLE Referrals: HECTOR LYLE DO (PCP) Patient Instructions: Viral Syndrome Scripts Promethazine HCl/Codeine (Prometh-Codein 6.25-10 mg/5 ml) 5 Ml Syrup 10 ML PO PRN QHS PRN for cough MDD 10 Milliliter(s), #240 ML 0 Refills Prov: GURU REDMOND 01/28/21 Attending Signature Attending Signature I have reviewed the PA/DOT COMPLIANCE COORDINATOR's note and plan of care. I was available for consultation as needed during the patient's visit in the emergency department. I agree with the clinical impression, plan, and disposition. (ABDI HAGEN DO) GURU REDMOND Jan 28, 2021 14:18 ABDI HAGEN DO Jan 28, 2021 23:27
--- NOTE | 2021-01-28 14:42 | RAD ---
XR CHEST 1V History: Reason: sob / Spl. Instructions: / History: Comparison: March 12, 2020 Findings: No consolidation or pleural effusion. Normal heart size. No pneumothorax. Impression: 1. No acute cardiopulmonary process. Electronically signed by: Jay Becerra DO (01/28/2021 2:39 PM) [id number]
[2021-01-28] MEDS ORDERED: PROM5SYR2 PO (15:03)
[2021-01-28 15:06] LABS: INFLUENZA A PATIENT NEGATIVE (NEGATIVE); INFLUENZA B PATIENT NEGATIVE (NEGATIVE)
== END 2021-01-28 15:15 | disposition home or self-care (01) ==
LOC: ER 13:39
DX: B34.9 Viral infection, unspecified (principal); R50.9 Fever, unspecified; Z20.822 Contact with and (suspected) exposure to COVID-19
CPT/HCPCS: 71045; 87804; 99284; C9803; U0003

== ENCOUNTER 2021-03-05 00:39 | Emergency (ER) | payer OTHER ==
[~2021-03-05] VITALS: Ht 177.8 cm; Wt 73.2 kg
[~2021-03-05 00:39] MED LIST changes: +PROM5SYR2 PO
[2021-03-05 00:54] VITALS: BP 120/79
[2021-03-05] MEDS ORDERED: KETOROLAC 30 MG/ML VIAL. IVP ONE (01:00)
[2021-03-05] MEDS ORDERED: diphenhydrAMINE 50 MG/ML VIAL IVP ONE (01:00)
[2021-03-05] MEDS ORDERED: METOCLOPRAMIDE HCL 10 MG/2 ML VIAL. IVP ONE (01:00)
[2021-03-05] MEDS ORDERED: IV NORMAL SALINE 1,000ML 1,000 ML IV ONE (01:00)
[2021-03-05] MEDS ORDERED: DEXAMETHASONE SOD PHOS 10 MG/ML VIAL. IVP ONE (01:00)
--- NOTE | 2021-03-05 01:07 | PHYS DOC ---
Past History Past Medical History: Bipolar, Migraines, Other Additional Past Medical Histor: ASD Past Surgical History: No Surgical History Smoking: Non-smoker Alcohol Use: None Drug Use: None General Adult EDM: Chief Complaint: HEADACHE HPI: HPI: Patient is a 25 year old male who presents to the emergency department via triage with a chief complaint of headache. The patient reports a history of migraines with his last being a few months ago. He is not any any preventative medications nor is he prescribed any abortive agents. The patient reports that today's presentation of headache is consistent with his prior migraines. Pain is predominately over the occipital area with radiation to the left shoulder and with associated abdominal pain. The patient reports that he is nauseous and did vomit once prior to arrival. Patient denies any auras or visual changes. Patient reports that prior to arrival he took some Tylenol and Excedrin to no relief. Patient denies any recent head trauma or associated loss of consciousness. Review of Systems: Review of Systems: Constitutional: Denies fever or chills Eyes: Denies redness or eye pain; reports photophobia HENT: Denies nasal congestion or sore throat Respiratory: Denies cough or shortness of breath Cardiovascular: Denies chest pain or palpitations GI: Denies abdominal pain; reports nausea and vomiting : Denies dysuria or hematuria Musculoskeletal: Denies back pain or joint pain Integument: Denies rash or skin lesions Neurologic: Denies focal weakness/sensory changes; reports headache Complete systems were reviewed and found to be within normal limits, except as documented in this note. Current Medications: Current Meds: Current Medications Medications (Trade) Dose Ordered Sig/[facility] Start Time Stop Time Status Last Admin Dose Admin Dexamethasone Sodium Phosphate (Decadron) 10 mg 1X ONCE 03/05/21 01:00 03/05/21 01:01 DC Diphenhydramine HCl (Benadryl) 25 mg 1X ONCE 03/05/21 01:00 03/05/21 01:01 DC Ketorolac Tromethamine (Toradol 30mg Vial) 15 mg 1X ONCE 03/05/21 01:00 03/05/21 01:01 DC Metoclopramide HCl (Reglan Vial) 10 mg 1X ONCE 03/05/21 01:00 03/05/21 01:01 DC Sodium Chloride 1,000 ml @ 1,000 mls/hr 1X ONCE 03/05/21 01:00 03/05/21 01:59 Allergies: Allergies: Allergies Coded Allergies Type Severity Reaction Last Updated Verified ibuprofen Allergy Unknown 03/05/21 Yes Physical Exam: PE: Constitutional: Well developed, well nourished, no acute distress, non-toxic appearance, appears tired HENT: Normocephalic, atraumatic Eyes: PERRL, EOMI, conjunctiva normal, no discharge, photophobia Neck: Normal range of motion, no tenderness, supple, negative Kernig sign, negative Brudzinski sign, no meningeal signs Lungs & Thorax: No respiratory distress, equal chest rise and fall, peripheral pulses +2 and equal bilaterally, regular rate and rhythm Abdomen: Soft, no tenderness Skin: Warm, dry, no erythema, no rash Extremities: No tenderness, ROM intact, no edema Neurologic: Alert and oriented X 3, normal motor function, normal sensory function, no focal deficits noted Psychologic: Affect normal, judgment normal Current Patient Data: Vital Signs: Vital Signs Date Time Temp Pulse Resp B/P (MAP) Pulse Ox O2 Delivery O2 Flow Rate FiO2 03/05/21 00:54 98.0 63 18 120/79 (93) 99 EKG: EKG: [] Radiology/Procedures: Radiology/Procedures: [] Heart Score: C/O Chest Pain: N/A Course & Med Decision Making: Course & Med Decision Making Pertinent Lab studies reviewed. (See chart for details) 25-year-old man presents to the emergency department following sudden onset headache which he reports to be consistent with his prior episodes of migraines. Patient denies fever or sick contacts. There is no meningeal signs present on exam. HPI and physical exam is consistent with his prior episodes of migraine. Plan for symptomatic management in the emergency department as well as IV access, IV fluids, and blood work. Labs obtained and posted to chart. Symptomatic treatment provided with interval improvement. Rapid COVID testing negative. Patient stable for discharge with outpatient follow-up with PCP/neurologist. Neurology referral provided. Discussed findings and plan with patient, who acknowledges understanding and agreement. Adithya Disclaimer: Adithya Disclaimer: This electronic medical record was generated, in whole or in part, using a voice recognition dictation system. Departure Departure: Impression: Primary Impression: Headache Qualified Codes: R51.9 - Headache, unspecified Additional Impression: Nausea & vomiting Qualified Codes: R11.2 - Nausea with vomiting, unspecified Disposition: HOME / SELF CARE / HOMELESS Condition: IMPROVED Referrals: PCP,UNKNOWN (PCP) LILY MOREIRA MD Patient Instructions: Migraine Headache, [id number], Nausea and Vomiting, [id number] Scripts Butalb/Acetaminophen/Caffeine ([id number] 50-325-40) 1 Each Tablet 1 EACH PO Q6HRS PRN for HEADACHE, #14 TAB Prov: ABDI HAGEN DO 03/05/21 Ondansetron (ONDANSETRON ODT) 4 Mg Tab.rapdis 1 TAB PO PRN Q6-8HRS PRN for NAUSEA, #16 TAB Prov: ABDI HAGEN DO 03/05/21 ABDI HAGEN DO Mar 05, 2021 01:07
[2021-03-05 01:52] LABS: BASO # 0.1 x10^3/uL (0.0-0.2); BASO % 1 % (0-3); EOS # 0.1 x10^3/uL (0.0-0.7); EOS % 1 % (0-3); HEMATOCRIT 43.3 % (39.0-53.0); HEMOGLOBIN 14.4 g/dL (13.0-17.5); LYMPH # 2.6 x10^3/uL (1.0-4.8); LYMPH % 39 % (24-48); MEAN CORPUSCULAR HEMOGLOBIN 32 pg (25-35); MEAN CORPUSCULAR HGB CONC 33 g/dL (31-37); MEAN CORPUSCULAR VOLUME 96 fL (79-100); MONO # 0.8 x10^3/uL (0.0-1.1); MONO % 12 % (0-9); NEUT # 3.1 x10^3uL (1.8-7.7); NEUT % 47 % (31-73); PLATELET COUNT 177 x10^3/uL (140-400); RED BLOOD COUNT 4.51 x10^6/uL (4.30-5.70); RED CELL DISTRIBUTION WIDTH 13.1 % (11.5-14.5); WHITE BLOOD COUNT 6.7 x10^3/uL (4.0-11.0)
[2021-03-05 01:53] LABS: CALCIUM 8.9 mg/dL (8.5-10.1); CREATININE 1.1 mg/dL (0.7-1.3); GFR 98.7; POTASSIUM 3.8 mmol/L (3.5-5.1)
[2021-03-05 01:59] LABS: ALBUMIN/GLOBULIN RATIO 1.3 (1.0-1.7); MAGNESIUM 2.3 mg/dL (1.8-2.4); TOTAL BILIRUBIN 0.8 mg/dL (0.2-1.0); TOTAL PROTEIN 7.2 g/dL (6.4-8.2)
[2021-03-05] MEDS ORDERED: ONDA4TAB12 PO (02:13)
[2021-03-05] MEDS ORDERED: BUTA1TAB23 PO (02:13)
== END 2021-03-05 02:20 | disposition home or self-care (01) ==
LOC: ER 00:39
DX: G43.909 Migraine, unspecified, not intractable, without status migrainosus (principal); R11.2 Nausea with vomiting, unspecified; Z20.822 Contact with and (suspected) exposure to COVID-19; Z88.6 Allergy status to analgesic agent
CPT/HCPCS: 80053; 83735; 85025; 87426; 96361; 96374; 96375; 99284; C9803; J1100; J1200; J2765; J7030; U0003

== ENCOUNTER 2021-05-14 05:15 | Emergency (ER) | payer OTHER ==
[~2021-05-14] VITALS: Ht 177.8 cm; Wt 70.4 kg
[~2021-05-14 05:15] MED LIST changes: +BUTA1TAB23 PO
--- NOTE | 2021-05-14 05:44 | PHYS DOC ---
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 States he has had a cough for a couple of weeks, [place], did not have a pneumonia but was given codeine cough syrup. Denies trying any other medications. Denies any recent travel, illnesses, fevers, chest pain, shortness of breath, abdominal pain, dysuria, hematuria or blood in the stool. States he is eating and drinking normally. States he is making urine and stool normally for him. Review of Systems Review of Systems Review of systems otherwise unremarkable except noted in HPI Allergies Allergies Allergies Coded Allergies Type Severity Reaction Last Updated Verified ibuprofen Allergy Unknown 03/05/21 Yes Physical Exam Physical Exam Constitutional: Well developed, well nourished, no acute distress, non-toxic appearance. [] HENT: Normocephalic, atraumatic, bilateral external ears normal, oropharynx moist, no oral exudates, nose normal. [] Eyes: conjunctiva normal, no discharge. [] Neck: Normal range of motion, no tenderness, supple, no stridor. [] Cardiovascular:Heart rate regular rhythm, no murmur [] Lungs & Thorax: No respiratory distress Abdomen: soft, no tenderness, no masses, no pulsatile masses. [] Skin: Warm, dry, no erythema, no rash. [] Extremities: No tenderness, no cyanosis, no clubbing, ROM intact, no edema. [] Neurologic: Alert and oriented X 3, no focal deficits noted. [] Psychologic: Affect normal, judgement normal, mood normal. [] Current Patient Data Vital Signs Vital Signs Date Time Temp Pulse Resp B/P (MAP) Pulse Ox O2 Delivery O2 Flow Rate FiO2 05/14/21 05:20 97.7 63 16 113/75 (88) 99 Room Air EKG EKG [] Radiology/Procedures Radiology/Procedures [] Heart Score C/O Chest Pain: No Risk Factors: Risk Factors: DM, Current or recent (<one month) smoker, HTN, HLP, family his tory of CAD, obesity. Risk Scores: Risk Factors: DM, Current or recent (<one month) smoker, HTN, HLP, family history of CAD, obesity. Course & Med Decision Making Course & Med Decision Making Patient is a 25-year-old male who presents wanting codeine cough syrup and a work note Vital signs not concerning. Physical exam noted above. Given Zofran and diphenhydramine Discussed findings with patient. Discussed symptom control at home. Advised to follow-up in the morning with primary care physician Gave return precautions to the ED. Patient grateful, verbalized understanding a nd agreed with plan of discharge. [] Dragon Disclaimer Dragon Disclaimer This electronic medical record was generated, in whole or in part, using a voice recognition dictation system. Departure Departure: Impression: Primary Impression: Cough Disposition: HOME / SELF CARE / HOMELESS Condition: GOOD Referrals: PCP,UNKNOWN (PCP) MARIBEL BROWN MD Patient Instructions: Cough, Adult Additional Instructions: Thank you for coming into the emergency department tonight allowing us to take care of you. Please read the attached information carefully to go over things we discussed. Please use [id number] cough syrup such as Delsym and cough drops as needed. You can continue Tylenol, ibuprofen as needed. Please follow- up this morning with your primary care physician update on ED visit and set up a follow-up for continued evaluation and treatment. Please come back with new or concerning symptoms as we discussed. TODD REYNOSO MD May 14, 2021 05:44
[2021-05-14] MEDS ORDERED: guaiFENesin DM 200MG/20MG 10 ML SYRUP PO ONE (05:45)
[2021-05-14] MEDS ORDERED: ONDANSETRON ODT 4 MG TAB.RAPDIS PO ONE (05:45)
[2021-05-14] MEDS ORDERED: diphenhydrAMINE HCL 25 MG CAPSULE PO ONE (05:45)
[2021-05-14 05:58] VITALS: BP 110/78
== END 2021-05-14 06:00 | disposition home or self-care (01) ==
LOC: ER 05:15
DX: R05.9 Cough, unspecified (principal); F31.9 Bipolar disorder, unspecified; G43.909 Migraine, unspecified, not intractable, without status migrainosus; Z88.6 Allergy status to analgesic agent
CPT/HCPCS: 99284; Q0162; Q0163